=== PATIENT | male | born 1950 | race Caucasian/White ===

== ENCOUNTER 2017-05-23 10:15 | Emergency (ER) | payer OTHER, MEDICARE ==
--- NOTE | ~2017-05-23 | ER ---
PATIENT'S NAME: BETTY RUCKER [facility] AGE: 66 Y [address] ROOM: [place] [address] LOCATION: [facility] ADMIT DATE: 05/23/2017 ER/Outpatient Report DISCHARGE DATE: 05/23/2017 FAMILY PHYSICIAN: Maykel Escalante MD ATTENDING PHYSICIAN: Harjinder Wheatley CHIEF COMPLAINT: Left knee pain. HISTORY OF PRESENT ILLNESS: Mr. Rucker has experienced left knee pain and swelling over the last 2 to 3 days. He has had this issue in the past and follows with Dr. Jose L bauman at [facility]. He has been doing well otherwise. He states that he ran out of his meloxicam which he had been taking a few days prior to the onset of his knee pain. He is taking the medication for this knee pain. He is asking for refill of his medication. He denies any fevers or chills and no redness of the joint, but some swelling and discomfort. PAST MEDICAL HISTORY: Documented on the record and reviewed by me. SOCIAL HISTORY: Documented on the record and reviewed by me. MEDICATIONS: Documented on the record and reviewed by me. ALLERGIES: DOCUMENTED ON THE RECORD AND REVIEWED BY ME. REVIEW OF SYSTEMS: All systems reviewed and negative except as noted in the HPI. PHYSICAL EXAMINATION: VITAL SIGNS: Blood pressure 176/85, pulse 68, respiratory rate is 18, temperature 97.8, SpO2 is 96% on room air. Pain is 5/10. GENERAL: Age-appropriate male, sitting on the exam table, in no apparent pain or distress. NEUROLOGIC: Awake and alert. GCS is 15. No obvious abnormalities. No weakness appreciated on exam. HEENT: Unremarkable. CHEST: Even and unlabored respirations. HEART: Regular rate. ABDOMEN: Benign. EXTREMITIES: The right lower extremity is unremarkable. The left lower PATIENT'S NAME: BETTY RUCKER [facility] AGE: 66 Y [address] ROOM: [place] [address] LOCATION: [facility] ADMIT DATE: 05/23/2017 ER/Outpatient Report DISCHARGE DATE: 05/23/2017 FAMILY PHYSICIAN: Maykel Escalante MD ATTENDING PHYSICIAN: Harjinder Wheatley extremity shows scant effusion of the knee. Mild prepatellar tap. Full range of motion. No ligamentous instability. No erythema or warmth prominent at the joint. No palpable masses. No tenderness at the joint line. SKIN: Clean, dry and intact. LABORATORY DATA AND X-RAYS: None. IMPRESSION: Left knee pain with effusion and medication refill. EMERGENCY DEPARTMENT COURSE: The patient was seen and evaluated at bedside. I do not think that the patient has an acute injury. There is no evidence of infectious arthritis. The patient does have a gout history, but not in this knee. He is on those medications. With his symptoms returning shortly after cessation of his meloxicam anti-inflammatory, I believe that is the case today. The patient is asking for refill of that medication only today. We will do so. He is to follow up with his primary care office which he said he follows with Dr. Gill, to be done within 2 days. He is to return immediately if worse and I explicitly told him if there is any redness or heat in the knee or there is evidence of sickness, such as fever, nausea or vomiting. MD LUIS ENRIQUE HAWK/deedee /[id number] d: 05/23/[id number] t: 06/01/17 1046, OUTPATIENT REPORT
== END 2017-05-23 10:55 | disposition disaster alternative care site (69) ==
LOC: GMED 10:15
DX: Z76.0 Encounter for issue of repeat prescription (principal); M25.462 Effusion, left knee; E11.9 Type 2 diabetes mellitus without complications; E78.00 Pure hypercholesterolemia, unspecified; Z79.84 Long term (current) use of oral hypoglycemic drugs; Z79.82 Long term (current) use of aspirin; Z79.899 Other long term (current) drug therapy